=== PATIENT | female | born 1995 | race Caucasian/White ===

== ENCOUNTER 2017-04-26 12:54 | Emergency (ER) | payer BC ==
[2017-04-26 14:33] LABS: HCG URINE NEGATIVE (NEGATIVE)
[2017-04-26 14:44] LABS: APPEARANCE CLEAR (CLEAR); BILIRUBIN NEGATIVE (NEGATIVE); COLOR TAN (YELLOW); GLUCOSE NEGATIVE (NEGATIVE); KETONE NEGATIVE (NEGATIVE); NITRITE NEGATIVE (NEGATIVE); PROTEIN NEGATIVE (NEGATIVE); SPECIFIC GRAVITY 1.015 (1.005-1.020); UROBILINOGEN NORMAL (NORMAL)
[2017-04-26 14:45] LABS: WHITE CELLS - URINE 25-50 /hpf (0-5)
[2017-04-26 14:46] LABS: BACTERIA FEW /hpf (NONE SEEN); RED CELLS - URINE 0-5 /hpf (0-5)
== END 2017-04-26 16:20 | disposition home or self-care (01) ==
LOC: D.ER 12:54
PROVIDERS: Emergency Medicine; Nurse Practitioner Family
DX: N39.0 Urinary tract infection, site not specified (principal); R10.9 Unspecified abdominal pain

== ENCOUNTER 2017-08-13 17:21 | Emergency (ER) | payer BC ==
[~2017-08-13] VITALS: Ht 175.3 cm; Wt 122.7 kg
[2017-08-13 17:50] VITALS: Ht 175.3 cm; Wt 122.7 kg
[2017-08-13] MEDS ORDERED: MACROBID100 MG PO (22:18)
[2017-08-13] MEDS ORDERED: TORADOL10 MG PO (22:18)
[2017-08-14 00:45] VITALS: BP 131/88
== END 2017-08-13 22:38 | disposition home or self-care (01) ==
LOC: D.ER 17:21
DX: N39.0 Urinary tract infection, site not specified (principal); R35.0 Frequency of micturition

== ENCOUNTER 2017-09-18 18:35 | Emergency (ER) | payer BC ==
[~2017-09-18] VITALS: Ht 175.3 cm; Wt 122.7 kg
[~2017-09-18 18:35] MED LIST: MACROBID100 MG PO; TORADOL10 MG PO
[2017-09-18 18:40] VITALS: Ht 175.3 cm; Wt 122.7 kg
[2017-09-18] MEDS ORDERED: VOLTAREN75 MG PO (21:41)
[2017-09-18] MEDS ORDERED: ROBAXIN-750750 MG PO (21:41)
[2017-09-18 22:19] LABS: HCG URINE NEGATIVE (NEGATIVE)
[2017-09-19 00:14] VITALS: BP 130/89
== END 2017-09-19 00:15 | disposition home or self-care (01) ==
LOC: D.ER 18:35
PROVIDERS: Family Medicine
DX: S16.1XXA Strain of muscle, fascia and tendon at neck level, initial encounter (principal); V49.9XXA Car occupant (driver) (passenger) injured in unspecified traffic accident, initial encounter; Y93.89 Activity, other specified; Y92.410 Unspecified street and highway as the place of occurrence of the external cause; M54.6 Pain in thoracic spine; F41.9 Anxiety disorder, unspecified